=== PATIENT | male | born 1980 | race Caucasian/White ===

== ENCOUNTER 2016-11-11 11:00 | Emergency (ER) | payer SELFPAY ==
[~2016-11-11] VITALS: Ht 167.6 cm; Wt 79.4 kg
[2016-11-11 11:07] VITALS: BP 140/83
--- NOTE | 2016-11-11 11:18 | NUR ---
Patient being evaluated by physician at bedside.
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
[2016-11-11] MEDS ORDERED: ONDANSETRON 4 MG ODT PO ONE (11:25)
[2016-11-11] MEDS ORDERED: DEXAMETHASONE 10 MG/ML VIAL IM ONE (11:25)
[2016-11-11 12:33] VITALS: BP 140/83
--- NOTE | 2016-11-11 12:34 | NUR ---
Patient discharged with v/s stable. Written and verbal after care instructions given and explained. Patient alert, oriented and verbalized understanding of instructions. Ambulatory with steady gait. All questions addressed prior to discharge. ID band removed. Patient advised to follow up with PMD. Rx of PREDNISONE, BENADRYL, HYDROCORTISONE given. Patient educated on indication of medication including possible reaction and side effects. Opportunity to ask questions provided and answered.
== END 2016-11-11 12:34 | disposition home or self-care (01) ==
LOC: MED 11:00
DX: L25.3 Unspecified contact dermatitis due to other chemical products (principal); F17.200 Nicotine dependence, unspecified, uncomplicated; Z71.6 Tobacco abuse counseling
CPT/HCPCS: 96372; 99283; J1100; S0119